=== PATIENT | male | born 1955 | race Caucasian/White ===

== ENCOUNTER 2017-01-16 00:01 | Outpatient (CLI) | payer MEDICARE ==
[2017-01-16] MEDS ORDERED: CYCLOBENZAPRINE10 MG PO (14:42)
[2017-01-16] MEDS ORDERED: LISINOPRIL5 MG PO (14:43)
[2017-01-16] MEDS ORDERED: LOVASTATIN20 MG PO (14:43)
[2017-01-16] MEDS ORDERED: XARELTO20 MG PO (14:44)
[2017-01-16] MEDS ORDERED: INVOKANA100 MG PO (14:45)
[2017-01-16] MEDS ORDERED: GLIMEPIRIDE1 MG PO (14:45)
[2017-01-16] MEDS ORDERED: ACTOS15 MG PO (14:46)
[2017-01-16] MEDS ORDERED: HYDROCODON-ACE1 EAC7 PO (14:47)
[2017-01-16 16:03] LABS: HEMATOCRIT 47.3 % (42.0-54.0); MCH 32.1 pg (26.0-34.0); MCHC 33.8 g/dL (31.0-37.0); MEAN PLATELET VOLUME 9.7 fL (7.4-10.4); RBC 4.98 10x6/uL (4.20-6.10); WBC 5.8 10x3/uL (4.8-10.8)
[2017-01-16 16:21] LABS: CALC OSMOLALITY 287 mosm/kg (275-300); CARBON DIOXIDE 28.2 mmol/L (21.0-32.0); CHLORIDE - SERUM 106 mmol/L (98-107); GLUCOSE 98 mg/dL (74-106); POTASSIUM - SERUM 4.6 mmol/L (3.5-5.1); SODIUM 143 mmol/L (136-145); UREA NITROGEN 20 mg/dL (7-18); eGFR NON AFRICAN AMERICAN 80 mL/min (90-120)
== END 2017-01-16 23:59 | disposition home or self-care (01) ==
LOC: D.PAN 00:01 → D.OPS 01-17 07:30 → D.PAN 01-17 07:45 → D.OPS 01-17 07:45 → EDSTATUS 01-17 07:45
PROVIDERS: Anesthesiology
DX: M75.102 Unspecified rotator cuff tear or rupture of left shoulder, not specified as traumatic (principal); Z01.810 Encounter for preprocedural cardiovascular examination; Z01.811 Encounter for preprocedural respiratory examination; Z01.812 Encounter for preprocedural laboratory examination

== ENCOUNTER 2017-02-20 11:29 | Outpatient (CLI) | payer MEDICARE ==
--- NOTE | ~2017-02-20 | HEMODYNAMI ---
PATIENT:THOR REYES MEDICAL RECORD: [id number] : 53 LOCATION:[facility] ADMISSION DATE: 02/20/17 Generatedon:02/20/201713:14 Patient name: THOR REYES Patient #: [id number] SSN: [id number] : 1955 Date of study: 02/20/2017 Page: Of Hemodynamic Procedure Report Patient Data Patient Demographics Procedure consent was obtained First Name: THOR Gender: Male Last Name: ERIC : 1955 Patient #: [id number] Age: 61 year(s) Race: SSN: [id number] Additional ID: [id number] Contact details Address: [address] [place] [address] State: [place] City: [place] Zip code: [address] Past Medical History Allergies Allergen Reaction Date Comments Reported Other allergy 02/20/2017 codeine Admission Admission Data Admission Date: 02/20/2017 Admission Time: 11:29 Arrival Date: 02/20/2017 Arrival Time: 13:30 Admit Source: Other Insurance Payor: Medicare Height (in.): 73 BSA: 2.56 (m2) Height (cm.): 185.42 BMI: 39.71 (kg/m2) Weight (lbs.): 301 Weight (kg.): 136.53 Lab Results Lab Result Date: 02/20/2017 Lab Result Time: 0:00 Biochemistry Name Units Result Min Max BUN mg/dl 22 --(----)-* 7 18 Creatinine mg/dl 1.1 --(--*-)-- 0.6 1.3 Procedure Procedure Types Cath Procedure Diagnostic Procedure [facility] w/Coronaries Miscellaneous Procedures Moderate Sedation up to 30 minutes Procedure Description Procedure Date Procedure Date: 02/20/2017 Procedure Start Time: 12:58 Procedure End Time: 13:11 Procedure Staff Name Function Ramírez Cordova MD Performing Physician Renee Santos RN Nurse Carisa Robles RT Monitor Mamie Hughes RT Scrub Indication Angina Procedure Data Cath Procedure Fluoroscopy Diagnostic fluoroscopy Total fluoroscopy Time: 1.7 time: 1.7 min min Diagnostic fluoroscopy Total fluoroscopy dose: 688 dose: 688 mGy mGy Contrast Material Contrast Material Type Amount (ml) Isovue 370 57 Entry Location Entry Primary Successful Side Size Upsize Upsize Entry Closure Succes sful Closure Location (Fr) 1 (Fr) 2 (Fr) Remarks Device Remarks Femoral Right 5 Fr Exoseal artery Estimated blood loss: 5 ml Diagnostic catheters Device Type Used For End Catheter Placement Cordis 5Fr JL 4.0 Left Coronary Catheter (MP) Angiography Cordis 5Fr 3DRC Catheter Right Coronary (MP) Angiography Cordis 5Fr Pigtail LV Angiography Catheter (MP) Procedure Complications No complications Procedure Medications Medication Administration Route Dosage Oxygen NC 2 l/min Heparin Flush Bag added to field 2 bags (1000units/500ml NS) Lidocaine 2% added to field 20 Versed I.V. 1 mg Fentanyl I.V. 50 mcg Versed I.V. 1 mg Fentanyl I.V. 50 mcg Versed I.V. 0.5 mg Fentanyl I.V. 25 mcg Hemodynamics Rest BSA: 2.56 (m2) O2 Consumption: Estimated: 310.89 (ml/min) O2 Consumption indexed : Estimated:121.44 (ml/min/m) Heart Rate: 81 (bpm) Pressure Samples Time Site Value (mmHg) Purpose Heart Use Rate(bpm) 13:05 LV 100/18,15 Snapshot 90 13:06 AO 136/94(112) Pullback 91 Gradients Valve Time Site Site 2 Mean SEP/DFP Peak To Heart Use 1 (mmHg) (sec/min) Peak Rate (mmHg) (bpm) Aortic 13:06 LV AO 91 136/94(112) Snapshots Pre Cath Intra NCS Post Cath Vital Signs Time Heart Resp SPO2 NIBP (mmHg) Rhythm Pain Sedation Rate (ipm) (%) Status Level (bpm) 12:47:32 82 16 99 135/91(125) NSR 0 (11) 10(A) , No pain 12:51:41 84 12 99 136/82(106) NSR 0 (11) 10(A) , No pain 12:55:57 86 16 98 124/83(100) NSR 0 (11) 10(A) , No pain 13:00:07 87 16 95 123/83(119) NSR 0 (11) 9(A) , No pain 13:05:06 91 16 95 Measuring NSR 0 (11) 9(A) , No pain 13:06:20 87 16 95 128/106(126) NSR 0 (11) 9(A) , No pain 13:10:09 91 16 95 113/99(108) NSR 0 (11) 9(A) , No pain Medications Time Medication Route Dose Verified Delivered Reason Notes Effec tiveness by by 12:47:55 Oxygen NC 2 Ramírez Renee Per l/min St. Tay Santos RN physician 12:48:03 Heparin Flush added 2 Ramírez Ramírez used for Bag to bags [facility] procedure (1000units/500ml field MD MCGUIRE NS) 12:48:10 Lidocaine 2% added 20ml Ramírez Ramírez used for to vial [place] procedure field MD MCGUIRE 12:51:37 Versed I.V. 1 mg Ramírez Renee for [facility]. Tay Santos RN sedation 12:51:47 Fentanyl I.V. 50 Ramírez Renee for mcg [facility] Tay Santos RN sedation 12:55:02 Versed I.V. 1 mg Ramírez [place] for [facility] Tay Santos RN sedation 12:55:04 Fentanyl I.V. 50 Ramírez Renee for mcg [facility] Tay Santos RN sedation 12:59:09 Versed I.V. 0.5 Ramírez Renee for mg [facility] Tay Santos RN sedation 12:59:12 Fentanyl I.V. 25 Ramírez Renee for mcg [facility] Tay Santos RN sedation Procedure Log Time Note 12:09:02 Informed consent obtained and on chart 12:09:08 Diagnostic Cath Status : Elective 12:09:24 Indication : Angina 12:09:33 Admit Source: Other 12:09:35 Arrival Date: 02/20/2017 1:30:00 PM 12:09:55 Insurance Payor : Medicare 12:10:28 Patient Height : 185.42 cm 12:10:42 Patient Weight : 136.53 kg 12:21:23 Renee Santos RN sent for patient. Start room use. 12:21:28 Time tracking: Regular hours 12:21:32 Plan of Care:Hemodynamics will remain stable., Cardiac rhythm will remain stable., Comfort level will be maintained., Respiratory function will remain adequate., Patient/ family verbilizes understanding of procedure., Procedure tolerated without complication., Recovers from procedure without complications.. 12:32:15 Lab Result : Creatinine 1.1 mg/dl 12:32:15 Lab Result : BUN 22 mg/dl 12:46:20 Patient received from Pre/Post Procedure Room to CCL 2 Alert and oriented. Tansferred to table in Supine position. 12:46:21 Warm blankets applied, and dione hugger turned on for patient comfort. 12:46:22 Correct patient and procedure confirmed by team. 12:46:24 ECG and BP/O2 sat monitors applied to patient. 12:46:24 Vital chart was started 12:46:25 Baseline sample Acquired. 12:46:30 Rhythm: sinus rhythm 12:46:31 Full Disclosure recording started 12:46:47 H&P Date Dictated: 02/11/2017 Within 30 days and on chart., H&P Addendum completed by physician on day of procedure. (MUST COMPLETE FOR ALL OUTPATIENTS). 12:46:49 Pre-procedure instructions explained to patient. 12:46:50 Pre-op teaching completed and patient verbalized understanding. 12:46:51 Family in waiting room. 12:46:52 Patient NPO since Midnight. 12:47:55 Oxygen 2 l/min NC was administered by Renee Santos RN; Per physician; 12:48:03 Heparin Flush Bag (1000units/500ml NS) 2 bags added to field was administered by Ramírez Cordova MD; used for procedure; 12:48:10 Lidocaine 2% 20ml vial added to field was administered by Ramírez Cordova MD; used for procedure; 12:50:11 Patient allergic to Other allergycodeine 12:50:16 Is the patient allergic to Iodine/contrast media? No. 12:50:17 Was the patient premedicated? No 12:50:18 Is patient on blood thinner?Yes 12:50:24 Patient diabetic? Yes. 12:50:25 If diabetic: On Metformin? No 12:50:29 Previous problem with sedation/anesthesia? No ? 12:50:31 Snore? Yes 12:50:32 Sleep apnea? No 12:50:33 Deviated septum? No 12:50:34 Opens mouth fully? Yes 12:50:34 Sticks out tongue? Yes 12:50:36 Airway obstruction? No ? 12:50:39 Dentures? No ? 12:50:48 Pre procedure: right dorsailis pedis pulse 1+ Palpable, but thready & weak; easily obliterated 12:50:56 Modified Mu's test Radial > 7 seconds. 12:51:07 IV patent on arrival in left forearm with 0.9% NaCl at [facility] 12:51:10 Lab results completed and on chart. 12:51:16 Right groin area was prepped with chlora-prep and draped in sterile fashion 12:51:17 Alarms reviewed by R. N. 12:51:17 Sharps counted by scrub and verified by R.N. 12:51:19 Physician arrived 12:51:19 --------ALL STOP TIME OUT------ 12:51:20 Final Timeout: patient, procedure, and site verified with staff and physician. All members of the team are in agreement. 12:51:22 Right groin site verified by team. 12:51:25 Physical assessment completed. ASA score P 2 - A patient with mild systemic disease as per Ramírez Cordova MD. 12:51:29 Sedation plan: IV Moderate Sedation Versed, Fentanyl 12:51:37 Versed 1 mg I.V. was administered by Renee Santos RN; for sedation; 12:51:39 Use device set Femoral Dx 12:51:40 Acist Syringe opened to sterile field. 12:51:41 Bag Decanter opened to sterile field. 12:51:41 Medline Cath Pack opened to sterile field. 12:51:42 Terumo 5Fr Layland Sheath opened to sterile field. 12:51:42 St Deric 260cm J .035 wire opened to sterile field. 12:51:43 Acist Hand Control opened to sterile field. 12:51:44 Acist Manifold opened to sterile field. 12:51:44 Diagnostic Infinity 5Fr Multipack catheter opened to sterile field. 12:51:44 Tegaderm 4 x 4 opened to sterile field. 12:51:47 Fentanyl 50 mcg I.V. was administered by Renee Santos RN; for sedation; 12:55:02 Versed 1 mg I.V. was administered by Renee [place] RN; for sedation; 12:55:04 Fentanyl 50 mcg I.V. was administered by Renee Santos RN; for sedation; 12:58:25 Procedure started. 12:58:33 Local anesthetic to right femoral artery with Lidocaine 2% by Ramírez Cordova MD.INITIAL ACCESS ONLY 12:58:45 A 5 Fr sheath was inserted into the Right Femoral artery 12:59:09 Versed 0.5 mg I.V. was administered by Renee Santos RN; for sedation; 12:59:12 Fentanyl 25 mcg I.V. was administered by Renee Santos RN; for sedation; 13:00:28 A Cordis 5Fr JL 4.0 Catheter (MP) was advanced over the wire and used for Left Coronary Angiography. 13:00:50 LCA angiography performed. 13:00:53 Injector settings: Ml/sec: 3, Volume: 6, 13:01:52 Catheter removed. 13:02:03 A Cordis 5Fr 3DRC Catheter (MP) was advanced over the wire and used for Right Coronary Angiography. 13:03:11 RCA angiography performed. 13:03:14 Injector settings: Ml/sec: 3, Volume: 6, 13:03:54 Catheter removed. 13:04:04 A Cordis 5Fr Pigtail Catheter (MP) was advanced over the wire and used for LV Angiography. 13:05:45 LV hemodynamics recorded. 13:05:46 LV gram done using NOLAND 13:05:49 Injector settings: Ml/sec: 5, Volume: 15, 13:05:54 EF : 55 % 13:06:26 Catheter removed. 13:07:42 Cordis 5Fr Exoseal opened to sterile field. 13:08:31 Sheath removed intact; hemostasis achieved with Exoseal to the Right Femoral artery. 13:08:33 Procedure ended.(Physican Out) 13:09:05 Fluoroscopy time 01.70 minutes. 13::11 Fluoroscopy dose: 688 mGy 13:09:11 Flurop Dose total: 688 13:09:54 Contrast amount:Isovue 370 57ml. 13:09:55 Sharps counted by scrub and verified by R.N. 13:09:57 Insertion/operative site no bleeding no hematoma. 13:09:59 Post-op/insertion site Right Femoral artery dressed using a 4 x 4 and Tegaderm. 13:10:04 Post procedure rhythm: unchanged. 13:10:07 Estimated blood loss: 5 ml 13:10:08 Post procedure instruction explained to patient.Patient verbalizes understanding. 13:10:08 Patient needs reinforcement of post procedure teaching. 13:10:30 Procedure type changed to Cath procedure, Diagnostic procedure, LHC, LHC w/Coronaries, Miscellaneous Procedures, Moderate Sedation up to 30 minutes 13:11:13 Procedure and supply charges have been captured, reviewed, submitted and are correct. 13:11:19 Procedure Complication : No complications 13:11:21 Vital chart was stopped 13:11:21 See physician's report for complete and final results. 13:11:25 Report given to Pre/Post Procedure Room. 13:11:28 Patient transfered to Pre/Post Procedure Room with Stretcher. 13:11:30 Procedure ended. 13:11:30 Full Disclosure recording stopped 13:11:35 End room use (Document Last) Device Usage Item Name Manufacture Quantity Catalog Hospital Part Current Minimal Lo t# / Number Charge Number Stock Stock Serial# Code Acist Acist 1 [id number] 252557 645283 626149 20 Syringe [employer] Bag Microtek 1 2002S 006113 35220 349769 5 Decanter [employer] Medline Cardinal 1 [id number] 725220 17634 844954 5 Cath Pack Health Terumo 5Fr Terumo 1 [id number] 804579 801151 889078 [address] D[address] St Deric 1 832324 288529 584984 969980 30 260cm J .035 wire Acist Hand Acist 1 94783 101632 737362 563876 5 Control [employer] Inc Acist Acist 1 46472 337678 724595 291993 5 Manifold [employer] Inc Diagnostic Cardinal 1 [id number] 437556 58656 026998 30 Infinity Health 5Fr Multipack catheter Tegaderm 4 3M 1 1626W 716566 194408 919141 5 x 4 Cordis 5Fr Cardinal 1 404404 5 JL 4.0 Health Catheter (MP) Cordis 5Fr Cardinal 1 613783 5 3DRC Health Catheter (MP) Cordis 5Fr Cardinal 1 384754 5 Pigtail Health Catheter (MP) Cordis 5Fr Cardinal 1 EX500 707750 459014 454900 10 Exoseal Health Signature Audit [place] Stage Time Signature Unsigned Intra-Procedure 02/20/2017 Carisa Robles 1:14:30 PM RT(R) Signatures Monitor : Carisa Robles RT Signature : Date : Time : [place] [id number] [place] [address]
[~2017-02-20 11:29] MED LIST: ACTOS15 MG PO; CYCLOBENZAPRINE10 MG PO; GLIMEPIRIDE1 MG PO; HYDROCODON-ACE1 EAC7 PO; INVOKANA100 MG PO; LISINOPRIL5 MG PO; LOVASTATIN20 MG PO; XARELTO20 MG PO
[2017-02-20 11:56] VITALS: BP 133/87; BMI 39.6
[2017-02-20 12:23] LABS: CARBON DIOXIDE 27.1 mmol/L (21.0-32.0); CREATININE - SERUM 1.1 mg/dL (0.6-1.3); POTASSIUM - SERUM 4.1 mmol/L (3.5-5.1)
[2017-02-20 12:27] LABS: BASOPHILS 0.5 % (0.0-2.0); EOSINOPHILS 3.8 % (0-7); HEMATOCRIT 50.7 % (42.0-54.0); HEMOGLOBIN 17.3 g/dL (13.5-17.5); IMMATURE GRANULOCYTES 0.2 % (0-5); LYMPHOCYTES 29.8 % (15-50); MCH 32.5 pg (26.0-34.0); MCHC 34.1 g/dL (31.0-37.0); MCV 95.3 fL (80.0-100.0); MONOCYTES 9.4 % (2-11); NEUTROPHILS 56.3 % (40-80); RBC 5.32 10x6/uL (4.20-6.10); RDW 13.1 % (11.5-14.5); WBC 5.8 10x3/uL (4.8-10.8)
[2017-02-20 12:55] LABS: PLATELET COUNT 134 10x3/uL (130-400)
--- NOTE | 2017-02-20 13:45 | NUR ---
IN BED WITH EYES CLOSED. 2L NC, NO RESP DISTRESS. NO C/O CHEST PAIN OR NAUSEA. RIGHT GROIN 5FR EXOSEAL CDI, NO BLEEDING OR HEMATOMA NOTED. VSS. INSTRUCTED PT TO KEEP HEAD FLAT ON PILLOW AND RIGHT LEG STRAIGHT.
--- NOTE | 2017-02-20 14:15 | NUR ---
NINA TRAY GIVEN. NO C/O N/V. 2L NC, NO RESP DISTRESS NOTED. RIGHT GROIN 5FR EXOSEAL CDI, NO BLEEDING OR HEMATOMA NOTED. VSS. WILL CONTINUE TO MONITOR.
--- NOTE | 2017-02-20 15:00 | NUR ---
HOB ELEVATED 30 DEGREES. RIGHT GROIN CDI, NO BLEEDING NOTED.
--- NOTE | 2017-02-20 15:22 | NUR ---
LEFT AC PIV D/C'D WITH CATHETER INTACT, BAND AID TO SITE. UP TO BEDSIDE TO GET DRESSED.
--- NOTE | 2017-02-20 15:28 | NUR ---
UP TO RESTROOM TO VOID.
--- NOTE | 2017-02-20 15:33 | NUR ---
DISCHARGE INSTRUCTIONS GIVEN, VERBALIZED UNDERSTANDING. TAKEN OUT VIA WHEELCHAIR BY CATH CLINICAL ADVISOR. LEFT FACILITY WITH FAMILY MEMBER AND ALL PERSONAL BELONGINGS.
--- NOTE | 2017-02-24 13:10 | OP ---
PATIENT NAME: THOR REYES MEDICAL RECORD: [id number] :53 LOCATION:[facility] ADMISSION DATE: SURGEON: BUFFY ENNIS MD DATE OF OPERATION: 02/20/2017 PROCEDURE: Left heart catheterization, right femoral artery approach. CATHETERS: A 5-Cymraes sheath, 5/4 left and right Yariel, 5/4 pig. The procedure was well tolerated and the patient returned to the rosenberg, sheath removed. ExoSeal device placed. FINDINGS: Left ventriculography in 30-degree NOLAND view: Normal wall motion, normal systolic function. CORONARY ANATOMY: Left main: Left main is free of disease. LAD: Free of disease in the diagonal system. Circumflex: Free of disease in the marginal system. Right coronary artery: Dominant artery, gives rise to PDA, free of disease. IMPRESSION: Normal systolic function. Normal coronary anatomy. TRANSINT:[id number] Voice Confirmation ID: [id number] DOCUMENT ID: [id number] BUFFY ENNIS MD at 1310 CC: [id number] DICTATION DATE: 02/20/17 131 INSTRUMENT MAN: 02/20/17 191 DEP CLI 02/20/17 [facility] [address] [place] [address]
== END 2017-02-20 15:33 | disposition home or self-care (01) ==
LOC: D.CATH 11:29
PROVIDERS: Internal Medicine Interventional Cardiology
DX: I20.9 Angina pectoris, unspecified (principal); R94.31 Abnormal electrocardiogram [ECG] [EKG]; E78.5 Hyperlipidemia, unspecified; Z01.818 Encounter for other preprocedural examination

== ENCOUNTER → 2017-03-19 08:57 | Outpatient (CLI) | payer MEDICARE ==
[2017-02-20 11:56] VITALS: BMI 39.6
== END | disposition home or self-care (01) ==
LOC: D.RAD 08:57
DX: R19.5 Other fecal abnormalities (principal)